=== PATIENT | female | born 1935 | race African-American/Black ===

== ENCOUNTER → 2017-08-25 | Outpatient (CLI) | payer OTHER ==
[2017-08-25 09:14] LABS: BASOPHIL % 0.5 % (0-2); PLATELET COUNT 240 x10^3mcL (130-400)
[2017-08-25 09:15] LABS: ALKALINE PHOSPHATASE 78 U/L (46-116); ALT/SGPT 23 U/L (14-59); AST/SGOT 18 U/L (15-37); BILIRUBIN TOTAL 0.6 mg/dL (0.20-1.00); CALCIUM 8.7 mg/dL (8.5-10.1); CARBON DIOXIDE 27.5 mmol/L (21-32); CHLORIDE SERUM 103 mmol/L (98-107); CREATININE SERUM 1.1 mg/dL (0.6-1.0); GLUCOSE SERUM 85 mg/dL (74-106); POTASSIUM SERUM 3.3 mmol/L (3.5-5.1); SODIUM SERUM 140 mmol/L (136-145); TOTAL PROTEIN, SERUM 7.5 g/dL (6.4-8.2)
[2017-08-25 09:21] LABS: RED CELL DISTRIBUTION WIDTH 18.4 % (11.5-14.5)
[2017-08-25 09:23] LABS: ALBUMIN 3.2 g/dL (3.4-5.0)
== END | disposition home or self-care (01) ==
LOC: LB 08:32
DX: I10 Essential (primary) hypertension (principal); M05.89 Other rheumatoid arthritis with rheumatoid factor of multiple sites